=== PATIENT | female | born 1935 | race Caucasian/White ===

== ENCOUNTER 2018-07-10 19:52 | Observation (INO) ==
--- NOTE | 2018-07-10 20:19 | Emergency Department Note ---
Disposition Clinical Impression: Pneumonia Disposition: Admitted As Inpatient Forms: ED Satisfaction Letter General Adult HPI - General Chief complaint: ED Upper Respiratory Infection Stated complaint: flu like symptoms Time Seen by Provider: 07/10/18 20:01 Source: patient, EMS Mode of arrival: EMS Limitations: no limitations Nursing Notes Reviewed: Yes Vital Signs Reviewed: Yes - History of Present Illness HPI Narrative: Patient states she is been ill since Monday with flulike symptoms and coughing with greenish sputum. She denies any fevers or chills nausea vomiting this feel she is a little short of breath. She denies any chest pain belly pain diarrhea rashes or other complaints Onset (ago): day(s) (Since Monday) Location: chest Pain Scale: 0 Improves with: nothing Worsens with: nothing Associated symptoms: Reports: cough, shortness of breath - Related Data Home Medications Medication Instructions Recorded Confirmed Carvedilol [Coreg] 6.25 mg PO BIDWM 06/12/18 07/10/18 Escitalopram Oxalate 5 mg PO DAILY 06/12/18 07/10/18 Losartan Potassium 25 mg PO DAILY 06/12/18 07/10/18 Oxycodone HCl/Acetaminophen 1 each PO HS 06/12/18 07/10/18 [Percocet 10-325 mg Tablet] Temazepam [Restoril] 30 mg PO HS 06/12/18 07/10/18 Previous Rx's Medication Instructions Recorded Docusate [Colace] 100 mg PO DAILY PRN capsule 01/27/17 Sennosides [Senna] 8.6 mg PO BID PRN #60 tablet 01/27/17 Diphenoxylate/Atropine [Lomotil 1 each PO TID 5 Days #15 tablet 05/04/17 2.5 mg/0.025 mg] Allergies Allergy/AdvReac Type Severity Reaction Status Date / Time morphine Allergy Hives Verified 06/12/18 07:27 Penicillins Allergy Hives Verified 05/04/17 10:12 IVP Dye AdvReac Vomiting Uncoded 05/04/17 10:12 All systems ED: reviewed and negative except as stated. Review of Systems: As Per HPI Constitutional: Denies: fever, chills, weakness, weight change Eyes: Denies: eye pain, eye discharge, vision change ENT ED: Denies: ear pain, throat pain, dental pain, hearing loss, epistaxis, congestion, dysphagia Cardiovascular: Denies: chest pain, palpitations, dyspnea on exertion, edema, syncope Respiratory: Reports: as per HPI, cough, dyspnea Gastrointestinal: Denies: abdominal pain, nausea, vomiting, diarrhea, constipation, hematemesis, melena, hematochezia Genitourinary: Denies: dysuria, frequency, hematuria, discharge Musculoskeletal: Denies: back pain, neck pain, arthralgia, myalgia Integumentary: Denies: rash, abrasion, lesions Neurological: Denies: headache, weakness, numbness, paresthesias, confusion, abnormal gait, vertigo Psychiatric: Denies: anxiety, depression, suicidal thoughts, homicidal thoughts, auditory hallucinations, visual hallucinations Endocrine: Denies: fatigue Hematological/Lymphatic: Denies: easy bleeding, easy bruising Allergic/Immunologic: Denies: facial swelling, urticaria Past Medical History - Past Medical History Attestation: Yes The following information was validated with the patient. Source: patient, nursing notes reviewed Medical history: Reports: arthritis, coronary artery disease, hypertension, kidney stones, myocardial infarction, other Surgical history: Reports: angioplasty/stent, appendectomy, cholecystectomy, hip replacement, hysterectomy, orthopedic, other, other Psychiatric history: Reports: depression [employer] history: Reports: bilateral tubal ligation - Social History Smoking Status: Former smoker Smokeless Tobacco Status: No Alcohol use: Reports: none Drug use: Reports: none Physical Exam - General Limitations: no limitations General appearance: alert - Head Head exam: atraumatic, normocephalic, normal inspection - Eye Eye exam: Present: normal appearance, PERRL, EOMI - ENT ENT exam: normal exam, normal oropharynx, mucous membranes moist - Neck Neck exam: Present: normal inspection, full ROM, trachea midline - Chest Chest inspection: Present: normal inspection, symmetric chest wall rise - Respiratory Respiratory exam: Present: other (Diminished breath sounds) - Cardiovascular Cardiovascular exam: Present: regular rate, normal rhythm, normal heart sounds - Abdominal Exam Abdominal exam: Present: soft, Non-Tender, normal bowel sounds - Extremities Exam Extremities exam: Present: normal inspection, full ROM. Absent: tenderness, pedal edema - Back Exam Back exam: Present: normal inspection, full ROM. Absent: tenderness - Neurological Exam Neurological exam: Present: alert, oriented X3 - Psychiatric Psychiatric exam: Present: normal affect, normal mood - Skin Skin exam: Present: warm, dry, intact, normal color Course Vital Signs Temperature 98.7 F 07/10/18 19:54 Pulse Rate 92 07/10/18 19:54 Respiratory Rate 21 07/10/18 19:54 Blood Pressure 106/75 07/10/18 19:54 O2 Sat by Pulse Oximetry 96 07/10/18 19:54 Temperature 98.7 F 07/10/18 19:54 Pulse Rate 92 07/10/18 19:54 Respiratory Rate 21 07/10/18 19:54 Blood Pressure 106/75 07/10/18 19:54 O2 Sat by Pulse Oximetry 96 07/10/18 20:04 Oxygen Delivery Oxygen Delivery Nasal Cannula Medical Decision Making - MDM Narrative Medical decision making narrative: I reviewed the patient's medication list Patient's condition discussed with Dr. Lee's who has graciously accepted admission - Lab Data Lab results reviewed: Yes I reviewed the patient's lab results. - Radiology Data Radiology results reviewed: Yes I reviewed the patient's radiology results. - EKG Data EKG #1 EKG attestation: Yes I reviewed and interpreted this EKG. EKG results narrative: EKG shows sinus rhythm with rate of 91 bpm. IL intervals 178 ms. QRS duration 98 ms QT interval 361 ms QTC 445 ms R axis of -[address] or T-wave elevation.
[2018-07-10 21:00] LABS: Basophils % 0.3 %; Eosinophils # 0.3 K/mcL (0.0-0.6); Eosinophils % 2.9 %; Hematocrit 36.3 % (35.3-44.9); Hemoglobin 11.6 g/dL (11.5-15.4); Immature Granulocytes % 0.3 % (0-4); Lymphocytes # 1.1 K/mcL (0.6-4.6); Lymphocytes % 12.6 %; Mean Corpuscular Hemoglobin 30.9 pg (28.0-33.3); Mean Corpuscular Volume 96.5 fL (83.0-100.0); Mean Platelet Volume 10.3 fL (9.4-12.4); Neutrophils # 6.6 K/mcL (1.6-8.9); Platelet Count 148 K/mcL (140-400); Red Blood Count 3.76 M/mcL (3.82-4.97); Red Cell Distribution Width 14.3 % (11.5-14.5); Segmented Neutrophils % 72.9 %
[2018-07-10 21:17] LABS: Alanine Aminotransferase 12 Units/L (7-52); Albumin 3.6 g/dL (3.5-5.7); Albumin/Globulin Ratio 1.1 (1.1-2.2); Alkaline Phosphatase 179 Units/L (34-104); Aspartate Amino Transferase 15 Units/L (13-39); BUN/Creatinine Ratio 20 (6-26); Bilirubin,Total 0.5 mg/dL (0.3-1.0); Blood Urea Nitrogen 15 mg/dL (8-23); Calcium 9.7 mg/dL (8.6-10.3); Carbon Dioxide 22 mEq/L (23-29); Chloride 102 mEq/L (98-107); Globulin 3.3 g/dL (2.4-3.5); Glucose 116 mg/dL (70-105); Osmolality,Calculated 280 (280-300); Potassium 3.9 mEq/L (3.5-5.1); Sodium 134 mEq/L (136-145); Total Protein 6.9 g/dL (6.4-8.9); Troponin I < 0.03 ng/mL (< 0.04); eGFR For Non-African Americans > 60 (> 60)
[2018-07-10] MEDS ORDERED: Levofloxacin 500 MG/100 ML 500 MG/100 ML BAG IVPB ONE (21:19)
[2018-07-10] MEDS ORDERED: Naloxone 0.4 MG/ML INJ IVP PRN (22:39)
[2018-07-10] MEDS ORDERED: Sennosides 8.6 MG TABLET PO PRN (22:39)
[2018-07-11] MEDS ORDERED: Ipratropium/Albuterol Neb 3 ML IH SCH
[2018-07-11] MEDS: Ipratropium/Albuterol Neb 3 ML IH SCH ×3 (00:22→08:55)
[2018-07-11] MEDS ORDERED: Ondansetron 4 MG/2 ML VIAL IVP PRN (04:34)
[2018-07-11 07:57] LABS: Basophils % 0.3 %; Eosinophils # 0.1 K/mcL (0.0-0.6); Eosinophils % 1.4 %; Hematocrit 35.5 % (35.3-44.9); Hemoglobin 11.6 g/dL (11.5-15.4); Immature Granulocytes % 0.4 % (0-4); Lymphocytes # 0.6 K/mcL (0.6-4.6); Lymphocytes % 8.1 %; Mean Corpuscular HGB Conc 32.7 g/dL (31.6-35.5); Mean Corpuscular Hemoglobin 30.8 pg (28.0-33.3); Mean Corpuscular Volume 94.2 fL (83.0-100.0); Mean Platelet Volume 10.3 fL (9.4-12.4); Monocytes # 0.8 K/mcL (0.0-1.3); Monocytes % 10.4 %; Neutrophils # 6.1 K/mcL (1.6-8.9); Platelet Count 144 K/mcL (140-400); Red Blood Count 3.77 M/mcL (3.82-4.97); Red Cell Distribution Width 14.3 % (11.5-14.5); Segmented Neutrophils % 79.4 %
[2018-07-11] MEDS ORDERED: Diphenoxylate/Atropine 1 TAB TABLET PO SCH (09:00)
[2018-07-11 09:06] LABS: BUN/Creatinine Ratio 19 (6-26); Blood Urea Nitrogen 16 mg/dL (8-23); Calcium 9.5 mg/dL (8.6-10.3); Carbon Dioxide 24 mEq/L (23-29); Chloride 102 mEq/L (98-107); Glucose 161 mg/dL (70-105); Osmolality,Calculated 285 (280-300); Potassium 3.6 mEq/L (3.5-5.1); Sodium 135 mEq/L (136-145); eGFR For Non-African Americans > 60 (> 60)
[2018-07-11 11:07] VITALS: BP 143/82
--- NOTE | 2018-07-11 12:07 | Internal Med History&Physical ---
Date of Encounter: 07/11/18 Time of Encounter: 11:35 Assessment and Plan (1) Pneumonia Current visit: Yes Status: Acute She was given IV Levaquin in emergency room. Qualifiers: Pneumonia type: due to unspecified organism Laterality: bilateral Lung location: unspecified part of lung Qualified Code(s): J18.9 - Pneumonia, unspecified organism (2) Lung nodule < 6cm on CT Current visit: Yes Status: Acute She reports no follow-up has been done since the April 2015 scan showed 5.8 mm right middle lobe nodule. Her PCP can follow up as recommended. (3) Essential (primary) hypertension Current visit: No Status: Chronic Continue Coreg and Cozaar. Internal Medicine - H&P: HPI Chief complaint: Cough and dyspnea Admitted From: Emergency Dept Plans for Post Hospital Care: Home History of present illness: Ms. Canada is a 83 year old female who came to emergency room complaining of increased dyspnea with cough productive of green sputum onset 07/07/2018. She denies significant fevers or chills. She had no vomiting or diarrhea at home. She reports she had loose stools during the night [facility]. She denies family members or other contacts with similar illnesses. She was felt to have possible pneumonia and was admitted to [facility] floor for ongoing care needs. She states she feels improved at the present time and wishes to be discharged home. Her respiratory history is significant for having smoked from age [age]. She denies chronic lung disease and does not use home oxygen. Chest CT 04/29/2015 showed a 5.8 mm pulmonary nodule in the right middle lobe. She reports no follow-up testing has been done. Past Med Surg Social Fam HX - Past Medical History Medical history: arthritis, coronary artery disease, hypertension, kidney stones, myocardial infarction, other Additional medical history: heart disease, anemia, gastric ulcer, hiatal hernia Psychiatric history: depression - Past Surgical History Surgical History: angioplasty/stent, appendectomy, cholecystectomy, hip replacement, hysterectomy, orthopedic, other, other Additional surgical history: tubal, PTCA stenting x2, lap alejandra, bladder suspention, carpal tunnel release, back surgery x3 - Social History Smoking Status: Former smoker Smokeless Tobacco Status: No Alcohol use: none Drug use: none - Family History Mother Living Status: Hx Family Cardiac Disorders: No Hx Family Respiratory Disorders: Yes Hx Family Cancer: Yes Hx Family GI Disorders: Yes Hx Family Endocrine Disorder: No Hx Family Neuromuscular Disorders: No Hx Family Neurologic Disorders: No Hx Family HEENT Disorders: No Hx Family Autoimmune Disorders: No Internal Medicine - H&P: Meds Docusate [Colace] 100 mg PO DAILY PRN capsule 01/27/17 [Rx] Sennosides [Senna] 8.6 mg PO BID PRN #60 tablet 01/27/17 [Rx] Diphenoxylate/Atropine [Lomotil 2.5 mg/0.025 mg] 1 each PO TID 5 Days #15 tablet 05/04/17 [Rx] Carvedilol [Coreg] 6.25 mg PO BIDWM 06/12/18 [History] Escitalopram Oxalate 5 mg PO DAILY 06/12/18 [History] Losartan Potassium 25 mg PO DAILY 06/12/18 [History] Oxycodone HCl/Acetaminophen [Percocet 10-325 mg Tablet] 1 each PO HS 06/12/18 [History] Temazepam [Restoril] 30 mg PO HS 06/12/18 [History] Allergy/AdvReac Type Severity Reaction Status Date / Time morphine Allergy Hives Verified 06/12/18 07:27 Penicillins Allergy Hives Verified 05/04/17 10:12 IVP Dye AdvReac Vomiting Uncoded 05/04/17 10:12 All Systems PM: A 10-system review of systems was performed and is negative for pertinent findings except as documented above in the HPI. Review of systems: Gen.: Her weight has decreased from 66.2 kg on 01/29/2017 to present with of 63.503 kg. Cardiovascular: She was diagnosed with hypertension 2016. She has ASHD status post WI approximately 2001 with single stent placed 2006. She denies further heart cath. She denies heart failure DVT or pulmonary embolus. Respiratory: As per history of present illness GI: She has had cholecystectomy. She reports EGD and colonoscopy 2011 were unremarkable. She denies vomiting, diarrhea, or disorders of her liver or exocrine pancreas : She had kidney stones approximately 2013 without recurrence. She denies other kidney or bladder disorders. Neurologic: She came she had a "stroke" in the past without permanent neurologic deficit. She denies seizures or other neurologic problems Endocrine: She denies diabetes thyroid disease or hyperlipidemia Hematology/oncology: She has had anemia in the past which has resolved. She d enies internal malignancies or other blood disorders. Psychiatric: She denies anxiety depression or other mental health issues. [place] skeletal: She had T12-L3 laminectomy with posterior lumbar interbody fusion October 2016. She has DJD and gout but denies other bone joint or muscle disorders. - Constitutional Vitals: Temp Pulse Resp BP Pulse Ox 98.9 F 80 19 143/82 96 07/11/18 11:06 07/11/18 11:06 07/11/18 11:06 07/11/18 11:06 07/11/18 11:06 Exam: Gen.: She is a well-developed well-nourished female resting comfortably in bed who appears in no severe distress at present time HEENT: Head is atraumatic and normocephalic. Eyes: EOMI. There is no scleral icterus. Mouth: Mucosa is moist. Neck: Supple and nontender. There is no thyromegaly or adenopathy noted. Heart: Regular without murmurs gallops or ectopics Lungs: No wheezes or crackles are heard. Abdomen: Soft and nontender. No masses or guarding are noted. Extremities: There is no cyanosis edema or clubbing noted. Dorsalis pedis and posttibial pulses are trace to 1+ palpable bilaterally. Neurologic: Mental status: She is talkative and a good historian. Cranial nerves: Smile is symmetric. Forehead wrinkles bilaterally. Tongue protrudes midline. EOMI. Motor: There is no pronator drift. Cerebellar: Finger to nose is intact bilaterally. Skin: Warm and dry Internal Med - H&P Results - Labs CBC & Chem 7: 07/11/18 07:37 07/11/18 07:37 Labs: Short CBC 07/10/18 07/11/18 Range/Units 20:51 07:37 WBC 9.1 7.7 (4.3-11.1) K/mcL Hgb 11.6 11.6 (11.5-15.4) g/dL Hct 36.3 35.5 (35.3-44.9) % Plt Count 148 144 (140-400) K/mcL Neutrophils # 6.6 6.1 (1.6-8.9) K/mcL BMP 07/10/18 07/11/18 20:51 07:37 Sodium 134 L 135 L Potassium 3.9 3.6 Chloride 102 102 Carbon Dioxide 22 L 24 BUN 15 16 Creatinine 0.76 0.84 Glucose 116 H 161 H Calcium 9.7 9.5 Cardiac Enzymes 07/10/18 Range/Units 20:51 Troponin I < 0.03 (< 0.04) ng/mL Liver Function 07/10/18 Range/Units 20:51 Total Bilirubin 0.5 (0.3-1.0) mg/dL AST 15 (13-39) Units/L ALT 12 (7-52) Units/L Alkaline Phosphatase 179 H (34-104) Units/L Albumin 3.6 (3.5-5.7) g/dL - Impressions ITS Impressions Chest X-Ray 07/10/18 20:03 IMPRESSION: Reticular changes in both lungs could represent atypical pneumonia, pulmonary edema or interstitial lung disease D/ / John Wells MD / John Wells MD Interpreting Provider: John Wells MD
--- NOTE | 2018-07-11 12:18 | Discharge Summary ---
Orders not resulted at time of discharge: Pending orders 07/10/18 20:51 Culture,Blood [] Stat Date of Encounter: 07/11/18 Time of Encounter: 11:35 - Discharge Diagnosis (1) Pneumonia Priority: Primary Status: Acute Qualifiers: Pneumonia type: due to unspecified organism Laterality: bilateral Lung location: unspecified part of lung Qualified Code(s): J18.9 - Pneumonia, unspecified organism (2) Lung nodule < 6cm on CT Priority: Secondary Status: Acute (3) Essential (primary) hypertension Priority: Secondary Status: Chronic Hospital course: Ms. Canada is a 83 year old female who came to emergency room complaining of increased dyspnea with cough productive of green sputum onset 07/07/2018. She denies significant fevers or chills. She had no vomiting or diarrhea at home. She reports she had loose stools during the night after being admitted to [facility]. She denies family members or other contacts with similar illnesses. She was felt to have possible pneumonia and was admitted to [facility] for ongoing care needs. Initial orders were written by the emergency room physician. I saw her on July 11 and performed a history physical and discharge. She was given a dose of IV Levaquin in emergency room. When I saw her she stated she felt significantly improved and near her baseline. She wished to be discharged home which I felt was reasonable. Her vital signs remained stable. She reported a loose stool during the night. This can be monitored at home. She will continue with antibiotic and probiotic for 3 additional days at discharge for possible bilateral atypical pneumonia seen on chest x-ray. Chest CT April 2015 showed a 5.8 mm pulmonary nodule in the right middle lobe. Her PCP can follow up with repeat CT scan as recommended. She will follow with her PCP Dr. Sosa within 1 week. Room air oximetry will be checked on 6 minute walk prior to discharge. - Time Spent with Patient Total time spent providing and/or coordinating discharge services: - Discharge Medications Prescriptions: New Lactobacillus [Culturelle] 1 each PO BID #6 cap.sprink levoFLOXacin [Levaquin] 750 mg PO DAILY #3 tablet Continue Docusate [Colace] 100 mg PO DAILY PRN capsule PRN Reason: Constipation Sennosides [Senna] 8.6 mg PO BID PRN #60 tablet PRN Reason: Constipation Diphenoxylate/Atropine [Lomotil 2.5 mg/0.025 mg] 1 each PO TID 5 Days #15 tablet Temazepam [Restoril] 30 mg PO HS Escitalopram Oxalate 5 mg PO DAILY Carvedilol [Coreg] 6.25 mg PO BIDWM Losartan Potassium 25 mg PO DAILY Oxycodone HCl/Acetaminophen [Percocet 10-325 mg Tablet] 1 each PO HS Home Medications: Docusate [Colace] 100 mg PO DAILY PRN capsule 01/27/17 [Rx] Sennosides [Senna] 8.6 mg PO BID PRN #60 tablet 01/27/17 [Rx] Diphenoxylate/Atropine [Lomotil 2.5 mg/0.025 mg] 1 each PO TID 5 Days #15 tablet 05/04/17 [Rx] Carvedilol [Coreg] 6.25 mg PO BIDWM 06/12/18 [History] Escitalopram Oxalate 5 mg PO DAILY 06/12/18 [History] Losartan Potassium 25 mg PO DAILY 06/12/18 [History] Oxycodone HCl/Acetaminophen [Percocet 10-325 mg Tablet] 1 each PO HS 06/12/18 [History] Temazepam [Restoril] 30 mg PO HS 06/12/18 [History] Lactobacillus [Culturelle] 1 each PO BID #6 cap.sprink 07/11/18 [Rx] levoFLOXacin [Levaquin] 750 mg PO DAILY #3 tablet 07/11/18 [Rx] Allergies/Adverse Reactions: Allergy/AdvReac Type Severity Reaction Status Date / Time morphine Allergy Hives Verified 06/12/18 07:27 Penicillins Allergy Hives Verified 05/04/17 10:12 IVP Dye AdvReac Vomiting Uncoded 05/04/17 10:12 Date of admission: 07/10/18 22:30 Primary care physician: Ashley Sosa MD - Constitutional Vitals: Temp Pulse Resp BP Pulse Ox 98.9 F 80 19 143/82 96 07/11/18 11:06 07/11/18 11:06 07/11/18 11:06 07/11/18 11:06 07/11/18 11:06 - Patient Status Disposition: Home, Self-Care - Discharge Instructions Follow Up With: Ashley Sosa MD [Primary Care Provider] - 1 week - Diet and Activity Activity: resume usual activities as tolerated Diet: advance to your usual diet
--- NOTE | 2018-07-11 15:15 | Electrocardiograph Report ---
[place] [id number] Test Date: 2018-07-10 Pat Name: Kate Canada Department: EDP-14 Room: [facility] Gender: F It Application Architect: : [id number] Requested By: Jaime Call Order Number: [id number] Reading MD: Maximo Klein Measurements Intervals [place]es Rate: 91 P: 58 NE: 178 QRS: -16 QRSD: 98 T: 44 QT: 361 QTc: 445 Interpretive Statements Sinus rhythm Borderline left axis deviation Electronically Signed On 07-11-2018 15:14:28 EDT by Maximo Klein
[2018-07-11] MEDS ORDERED: Temazepam 15 MG CAPSULE PO SCH (21:00)
[2018-07-11] MEDS ORDERED: *HR* OxyCODONE/APAP 10/325 TABLET PO SCH (21:00)
== END 2018-07-11 13:07 | disposition home or self-care (01) ==
LOC: INPPIK 19:52 → EMEROOPIK 19:52 → INPPIK 22:53
PROVIDERS: ADMIT Internal Medicine; ATTEND Internal Medicine